=== PATIENT | female | born 1995 | race Caucasian/White ===

== ENCOUNTER 2020-02-10 19:08 | Emergency (ER) | payer OTHER ==
[2020-02-10 20:04] LABS: #Basophils 0.1 thou/uL (0.0-0.2); #Eosinphils 0.1 thou/uL (0.0-0.7); #Lymphocytes 2.9 thou/uL (1.20-3.40); #Monocytes 0.5 thou/uL (0.11-0.59); #Neutrophils 5.5 thou/uL (1.40-6.50); %Basophils 0.7 % (0.0-1.0); %Eosinophils 0.8 % (0.0-10.0); %Lymphocytes 32.4 % (21.0-51.0); %Monocytes 5.5 % (0.0-10.0); %Neutrophils 60.6 % (42.0-75.0); Hemoglobin 14.1 g/dL (12.0-16.0); Mean Corpuscular HGB CONC 32.8 g/dL (32.0-36.0); Mean Corpuscular Hemoglobin 29.7 pg (27.0-31.0); Mean Corpuscular Volume 90.4 fL (78.0-98.0); Platelet Count 234 thou/uL (130-400); Red Blood Cell (RBC) Count 4.75 mill/uL (4.20-5.40)
[2020-02-10 20:21] LABS: ALT (SGPT) 15 U/L (8-55); AST (SGOT) 15 U/L (5-34); Albumin 3.9 g/dL (3.5-5.0); Alkaline Phosphatase 84 U/L (40-110); Anion Gap 13 mmol/L (10-20); BUN (Urea Nitrogen) 6 mg/dL (7.0-18.7); Bilirubin, Total 0.4 mg/dL (0.2-1.2); Calc. Creatinine Clearance 0 mL/min (70-130); Calcium 8.9 mg/dL (7.8-10.44); Carbon Dioxide 22 mmol/L (22-29); Chloride 107 mmol/L (98-107); Estimated GFR-MDRD Greater than 90; Globulin 2.8 g/dL (2.4-3.5); Glucose 93 mg/dL (70-105); Potassium 3.5 mmol/L (3.5-5.1); Protein, Total 6.7 g/dL (6.0-8.3); Sodium 138 mmol/L (136-145)
[2020-02-10 21:21] LABS: Bilirubin Negative (Negative); Blood, Urine 2+ (Negative); Clarity Clear (Clear); Glucose, Urine (Dipstick) Normal (Negative); Leukocyte Negative Leu/uL (Negative); Nitrite Negative (Negative); Protein, Urine (Dipstick) Negative (Neg-Trace); RBC/HPF 0-3 HPF (0-3); Squamous Epithelial 0-3 HPF (0-3); Urobilinogen Normal mg/dL (Less than 2); WBC/HPF 0-3 HPF (0-3)
[2020-02-10 21:41] LABS: Bacteria/HPF 1+ HPF (None Seen)
--- NOTE | 2020-02-11 06:28 | ULT ---
TRANSVAGINAL PELVIC ULTRASOUND: HISTORY: Six weeks' gestation with bleeding. COMPARISON: None. TECHNIQUE: Real-time garcia-scale color Doppler and spectral analysis of the pelvis was performed, transabdominal and transvaginal approach. FINDINGS: There is adequate vascular flow to both ovaries, which appears normal. There is a decidualized endome trium. There is a small gestational sac with a mean sac diameter of 0.98 cm, a small yolk sac and a f etal pole. The average ultrasound age is 5 weeks 5 days. No heart motion is yet appreciated. There is a small to moderate subchorionic hemorrhage. IMPRESSION: Findings of possible early with a small to moderate subchorionic hemorrhage. There is a sma ll gestational sac and yolk sac with a very small pole. No heart rate is yet documented due to the small size. Close followup hCG and ultrasound are recommended. POS: HOME
== END 2020-02-10 23:15 | disposition home or self-care (01) ==
LOC: ERS 19:08
DX: O20.9 Hemorrhage in early pregnancy, unspecified (principal); Z3A.01 Less than 8 weeks gestation of pregnancy
CPT/HCPCS: 36415; 76856; 80053; 81003; 81015; 84702; 85025; 86900; 86901

== ENCOUNTER 2020-02-20 19:11 | Emergency (ER) | payer OTHER ==
[2020-02-20 20:29] LABS: #Eosinphils 0.1 thou/uL (0.0-0.7); #Lymphocytes 2.8 thou/uL (1.20-3.40); #Monocytes 0.5 thou/uL (0.11-0.59); #Neutrophils 4.2 thou/uL (1.40-6.50); %Basophils 0.3 % (0.0-1.0); %Eosinophils 0.9 % (0.0-10.0); %Lymphocytes 36.9 % (21.0-51.0); %Monocytes 6.4 % (0.0-10.0); %Neutrophils 55.5 % (42.0-75.0); Hemoglobin 14.2 g/dL (12.0-16.0); Mean Corpuscular HGB CONC 34.2 g/dL (32.0-36.0); Mean Corpuscular Hemoglobin 30.6 pg (27.0-31.0); Mean Corpuscular Volume 89.4 fL (78.0-98.0); Mean Platelet Volume 8.2 fL (7.4-10.4); Platelet Count 226 thou/uL (130-400); RBC Distribution Width 11.8 % (11.5-14.5); Red Blood Cell (RBC) Count 4.66 mill/uL (4.20-5.40); White Blood Cell (WBC) Count 7.6 thou/uL (4.8-10.8)
[2020-02-20 20:37] LABS: Bilirubin Negative (Negative); Blood, Urine 2+ (Negative); Clarity Clear (Clear); Glucose, Urine (Dipstick) Normal (Negative); Leukocyte Negative Leu/uL (Negative); Nitrite Negative (Negative); Protein, Urine (Dipstick) Negative (Neg-Trace); RBC/HPF 0-3 HPF (0-3); Squamous Epithelial 0-3 HPF (0-3); Urobilinogen Normal mg/dL (Less than 2); WBC/HPF 0-3 HPF (0-3)
[2020-02-20 20:45] LABS: Bacteria/HPF Rare-Few HPF (None Seen)
--- NOTE | 2020-02-20 21:25 | ULT ---
ULTRASOUND PELVIC WITH DOPPLER: 02/20/20 HISTORY: Pelvic pain. COMPARISON: Ultrasound 02/12/20. FINDINGS: Real time garcia scale, color Doppler and spectral analysis of the pelvis was performed. There is a single viable intrauterine with average ultrasound age of 6 weeks,3 day. [facility] ed date of delivery is 10/12/20. [place]-rump length is 0.64 cm, 6 week, 3 days. Gestational sac diamete r is 1.56 cm, 6 weeks, 3 days. heart rate is documented at 98 beats per minute. Small yolk sac. Small subchorionic hemorrhage. Small cyst of the right ovary. Left ovary is not well visualized. Debra quate vascular flow to the right ovary. IMPRESSION: Single viable intrauterine as described. Small subchorionic hemorrhage. POS: HOME
[2020-02-20] MEDS ORDERED: Acetaminophen 500 MG TAB ONE (21:26)
== END 2020-02-20 21:33 | disposition home or self-care (01) ==
LOC: ERS 19:11
DX: O20.0 Threatened abortion (principal); Z3A.01 Less than 8 weeks gestation of pregnancy
CPT/HCPCS: 36415; 76856; 81003; 81015; 84702; 85025; 86900; 86901